=== PATIENT | female | born 1980 | race Two or more races ===

== ENCOUNTER 2018-01-01 04:53 | Inpatient (IN) | payer MEDICAID ==
[~2018-01-01] VITALS: Ht 152.4 cm; Wt 80.2 kg
[2018-01-01 06:21] LABS: Urine WBC None Seen /hpf (0 - 5)
[2018-01-01 06:26] LABS: Basophils # (auto) 0 uL; Basophils % (auto) 0.6 % (0.0-2.0); Eosinophils # (auto) 0.1 uL; Eosinophils % (auto) 1.1 % (0.0-7.0); Mean Corpuscular Hemoglobin 22.8 pg (28.0-32.0); Neutrophils # (auto) 3.9 uL
[2018-01-01 06:28] LABS: Hematocrit 31.9 % (36.0-46.0); Hemoglobin 10.1 g/dL (12.2-16.2); Lymphocytes # (auto) 1.8 uL; Lymphocytes % (auto) 28.3 % (10.0-50.0); Mean Corpuscular Hgb Conc. 31.7 g/dL (32.0-36.0); Monocytes # (auto) 0.5 uL; Nucleated Red Blood Cells % 0.1 %; Red Blood Cells 4.43 10^6/uL (4.0-5.20); Red Cell Distribution Width 16.6 % (11.8-14.3); White Blood Cell 6.4 10^3/uL (4.4-10.8)
[2018-01-01 06:30] LABS: Platelet Count (auto) 552 10^3/uL (140-450)
[2018-01-01 06:41] LABS: Urine Bacteria NONE SEEN /hpf (None Seen); Urine Blood 3+ /uL (Negative); Urine Mucus FEW (None Seen); Urine Specific Gravity 1.024 (1.001-1.035)
[2018-01-01 06:43] LABS: Albumin 3.4 g/dL (3.4-5.0); BUN/Creatinine Ratio 11.5; Bilirubin, Total 0.2 mg/dL (0.2-1.0); Calcium 8.8 mg/dL (8.5-10.1); Potassium 3.7 mmol/L (3.5-5.1); Total Protein 7.8 g/dL (6.4-8.2)
[2018-01-01] MEDS ORDERED: KETOROLAC TROMETH 30 MG/ML 1ML VIAL IV ONE (06:45)
[2018-01-01] MEDS ORDERED: LORazepam 0.5 MG TAB PO PRN (08:15)
[2018-01-01] MEDS ORDERED: IBUPROFEN 400 MG TAB PO PRN (08:15)
[2018-01-01] MEDS ORDERED: MORPHINE SULF(PF) 0.5MG/ML 10ML VIAL IV PRN (08:15)
[2018-01-01] MEDS ORDERED: NITROGLYCERIN 0.4 MG SL TAB SL PRN (08:15)
[2018-01-01] MEDS ORDERED: cefTRIAXone 1GM/10ml IVPUSH 10 ML IV ONE (08:15)
[2018-01-01] MEDS ORDERED: TEMAZEPAM 15 MG CAP PO PRN (08:15)
[2018-01-01] MEDS: SODIUM CHLORIDE 0.9% 1,000 ML IV SCH ×3 (08:38→22:01)
[2018-01-01] MEDS: cefTRIAXone 1GM/10ml IVPUSH 10 ML IV SCH (08:39)
[2018-01-01] MEDS ORDERED: CETI1TAB36 PO (10:54)
[2018-01-01 13:55] VITALS: BP 126/68
[2018-01-01] MEDS: KETOROLAC TROMETH 30 MG/ML 1ML VIAL IV PRN ×2 (14:45→21:57)
[2018-01-01 16:53] VITALS: BP 110/61
[2018-01-01 21:53] VITALS: BP 107/69
[2018-01-02] MEDS: KETOROLAC TROMETH 30 MG/ML 1ML VIAL IV PRN ×2 (03:58→09:54)
[2018-01-02 05:10] VITALS: BP 108/70
[2018-01-02 09:00] VITALS: BP 101/69
[2018-01-02] MEDS: cefTRIAXone 1GM/10ml IVPUSH 10 ML IV SCH (09:54)
[2018-01-02] MEDS: PROMETHAZINE HCL 25 MG/ML 1ML IV PRN (11:36)
[2018-01-02] MEDS ORDERED: MEPERIDINE HCL (25 MG/ML) 1ML VIAL IV ONE (12:30)
[2018-01-02] MEDS ORDERED: MEPERIDINE HCL (50 MG/ML) 1 ML VIAL IV ONE (12:45)
[2018-01-02 13:00] VITALS: BP 119/76
[2018-01-02] MEDS: SODIUM CHLORIDE 0.9% 1,000 ML IV SCH ×2 (14:31→22:27)
[2018-01-02 17:00] VITALS: BP 117/70
[2018-01-02] MEDS ORDERED: MEPERIDINE HCL (25 MG/ML) 1ML VIAL IV PRN (20:00)
[2018-01-02] MEDS ORDERED: MEPERIDINE HCL (50 MG/ML) 1 ML VIAL ONE (20:58)
[2018-01-02 22:00] VITALS: BP 106/68
[2018-01-03] MEDS: MEPERIDINE HCL (50 MG/ML) 1 ML VIAL IV PRN ×4 (02:55→21:03)
[2018-01-03 04:51] VITALS: BP 102/72
[2018-01-03] MEDS: PROMETHAZINE HCL 25 MG/ML 1ML IV PRN ×2 (07:42→20:23)
[2018-01-03 08:26] LABS: Basophils # (auto) 0 uL; Eosinophils # (auto) 0 uL; Hemoglobin 9.5 g/dL (12.2-16.2); Monocytes # (auto) 0.9 uL
[2018-01-03 08:27] LABS: Basophils % (auto) 0.2 % (0.0-2.0); Eosinophils % (auto) 0.2 % (0.0-7.0); Hematocrit 30.8 % (36.0-46.0); Lymphocytes # (auto) 1.6 uL; Lymphocytes % (auto) 15.3 % (10.0-50.0); Mean Corpuscular Hemoglobin 22.3 pg (28.0-32.0); Monocytes % (auto) 8.7 % (0.0-12.0); Neutrophils # (auto) 7.9 uL; Neutrophils % (auto) 75.6 % (37.0-80.0); Nucleated Red Blood Cells % 0.1 %; Platelet Count (auto) 469 10^3/uL (140-450); Red Blood Cells 4.28 10^6/uL (4.0-5.20); Red Cell Distribution Width 16.6 % (11.8-14.3); White Blood Cell 10.5 10^3/uL (4.4-10.8)
[2018-01-03 08:29] LABS: Calcium 7.8 mg/dL (8.5-10.1); Potassium 3.9 mmol/L (3.5-5.1)
[2018-01-03 08:33] LABS: BUN/Creatinine Ratio 6.2
[2018-01-03 08:44] LABS: Mean Corpuscular Volume 71.9 fL (80.0-100.0)
[2018-01-03 09:00] VITALS: BP 121/73
[2018-01-03] MEDS: cefTRIAXone 1GM/10ml IVPUSH 10 ML IV SCH (10:03)
[2018-01-03] MEDS: SODIUM CHLORIDE 0.9% 1,000 ML IV SCH (10:04)
[2018-01-03 13:00] VITALS: BP 108/69
[2018-01-03 17:00] VITALS: BP 114/75
[2018-01-03 22:06] VITALS: BP 114/72
[2018-01-04 05:15] VITALS: BP 114/72
[2018-01-04] MEDS: MEPERIDINE HCL (50 MG/ML) 1 ML VIAL IV PRN ×4 (06:11→22:11)
[2018-01-04 07:35] LABS: INR 0.96 (0.9-1.15); Partial Thromboplastin Time 26.4 sec (23.78-33.04); Prothrombin Time 10.3 sec (9.27-12.13)
[2018-01-04 08:33] VITALS: BP 110/70
[2018-01-04] MEDS: cefTRIAXone 1GM/10ml IVPUSH 10 ML IV SCH (09:43)
[2018-01-04] MEDS: SODIUM CHLORIDE 0.9% 1,000 ML IV SCH (11:30)
[2018-01-04 11:59] VITALS: BP 109/73
[2018-01-04 17:15] VITALS: BP 107/68
[2018-01-04] MEDS ORDERED: MIDAZOLAM HCL 1MG/1ML-2 ML VIAL ONE (17:46)
[2018-01-04] MEDS ORDERED: PROPOFOL 10 MG/ML 20 ML IV ONE (17:46)
[2018-01-04] MEDS ORDERED: SODIUM CHLORIDE LOCK 10 ML ONE (17:46)
[2018-01-04] MEDS ORDERED: fentaNYL CITRATE 100 MCG/2 ML VL ONE (17:46)
[2018-01-04] MEDS ORDERED: ONDANSETRON HCL 4 MG/2 ML VIAL ONE (17:46)
[2018-01-04] MEDS ORDERED: IOHEXOL 300 MG/ML 100ML BOTTLE IJ ONE (18:46)
[2018-01-04] MEDS ORDERED: ceFAZolin 1GM/50ML 50 ML IV ONE (18:50)
[2018-01-04] MEDS ORDERED: METOCLOPRAMIDE HCL 5MG/ml INJ 2ml VIAL IV ONE (19:30)
[2018-01-04] MEDS ORDERED: fentaNYL CITRATE 100 MCG/2 ML VL IV ONE (20:00)
[2018-01-04 21:49] VITALS: BP 111/72
[2018-01-04] MEDS: PROMETHAZINE HCL 25 MG/ML 1ML IV PRN (22:12)
[2018-01-05] MEDS: SODIUM CHLORIDE 0.9% 1,000 ML IV SCH (03:56)
[2018-01-05 05:32] VITALS: BP 130/88
[2018-01-05 07:05] LABS: Basophils # (auto) 0 uL; Eosinophils # (auto) 0.1 uL; Eosinophils % (auto) 1.3 % (0.0-7.0); Hemoglobin 9.3 g/dL (12.2-16.2); Monocytes # (auto) 0.6 uL
[2018-01-05 07:08] LABS: Basophils % (auto) 0.5 % (0.0-2.0); Lymphocytes # (auto) 1.7 uL; Lymphocytes % (auto) 27.3 % (10.0-50.0); Mean Corpuscular Hemoglobin 22.2 pg (28.0-32.0); Mean Corpuscular Volume 71.7 fL (80.0-100.0); Monocytes % (auto) 9.3 % (0.0-12.0); Neutrophils # (auto) 3.9 uL; Neutrophils % (auto) 61.6 % (37.0-80.0); Platelet Count (auto) 434 10^3/uL (140-450); Red Blood Cells 4.18 10^6/uL (4.0-5.20); Red Cell Distribution Width 16.5 % (11.8-14.3); White Blood Cell 6.3 10^3/uL (4.4-10.8)
[2018-01-05 07:30] LABS: BUN/Creatinine Ratio 5.6; Calcium 8.3 mg/dL (8.5-10.1); Potassium 3.7 mmol/L (3.5-5.1)
[2018-01-05 08:00] VITALS: BP 129/59
[2018-01-05] MEDS: MEPERIDINE HCL (50 MG/ML) 1 ML VIAL IV PRN (09:25)
[2018-01-05] MEDS: cefTRIAXone 1GM/10ml IVPUSH 10 ML IV SCH (09:25)
[2018-01-05] MEDS ORDERED: LEVO500T21 PO (10:14)
[2018-01-05 13:19] VITALS: BP 117/65
== END 2018-01-05 15:30 | disposition home or self-care (01) | DRG 465 ==
LOC: ER 05:04 → TELE 05:05 → TELE-CENTR 13:59
PROVIDERS: ADMIT Internal Medicine; ATTEND Internal Medicine
PROC: BT1D1ZZ Fluoroscopy of Right Kidney, Ureter and Bladder using Low Osmolar Contrast (ICD-10-PCS; 2018-01-04)
PROC: 0T768DZ Dilation of Right Ureter with Intraluminal Device, Via Natural or Artificial Opening Endoscopic (ICD-10-PCS; principal; 2018-01-04 18:51)
DX: N13.2 Hydronephrosis with renal and ureteral calculous obstruction (principal); N17.0 Acute kidney failure with tubular necrosis; N39.0 Urinary tract infection, site not specified; Z87.442 Personal history of urinary calculi; D64.9 Anemia, unspecified; D50.0 Iron deficiency anemia secondary to blood loss (chronic); F41.9 Anxiety disorder, unspecified; G47.00 Insomnia, unspecified; E66.9 Obesity, unspecified; N18.2 Chronic kidney disease, stage 2 (mild); N92.0 Excessive and frequent menstruation with regular cycle; Z82.49 Family history of ischemic heart disease and other diseases of the circulatory system; Z83.3 Family history of diabetes mellitus; Z68.34 Body mass index [BMI] 34.0-34.9, adult; Z88.5 Allergy status to narcotic agent; Z88.6 Allergy status to analgesic agent; Z79.899 Other long term (current) drug therapy; Z71.3 Dietary counseling and surveillance
CPT/HCPCS: 36415; 74018; 74176; 76000; 80048; 80053; 81001; 84702; 85025; 85610; 85730; 86850; 86900; 86901; 87086; 96374; 96375; J0690; J1885; J2250; J2405; J2704